=== PATIENT | male | born 1995 | race American Indian/Alaskan Native ===

== ENCOUNTER 2018-02-01 19:59 | Emergency (ER) | payer SELFPAY ==
[2018-02-01] MEDS ORDERED: MOTRIN ONE (20:16)
[2018-02-01] MEDS ORDERED: MOTRIN PO ONE (20:26)
[2018-02-01 21:43] LABS: Bilirubin,Urine NEG (Negative); Blood,Urine MOD (Negative); Color,Urine Yellow (Yellow); Mucus,Urine 2+ /HPF
[2018-02-01 21:44] LABS: WBC,Urine > 182.0 /HPF (0.0-6.0)
--- NOTE | 2018-02-01 22:26 | Ultrasound Report ---
FINAL REPORT PROCEDURE: US TESTICULAR DOPPLER COMP TECHNIQUE: Real-time bryan-scale and color flow Doppler sonography in multiple planes of the scrotum, testicles, and epididymes was performed. Velocity spectral waveform analysis Doppler imaging of the arterial inflow and venous outflow of the testicles was performed with image documentation. CPT 97712 and 16911 HISTORY: testicular swelling and pain COMPARISON: No prior studies are available for comparison. FINDINGS: RIGHT TESTICLE: Size: 4.2 x 2.0 x 2.8 cm . Appearance: Normal size and echotexture . Arterial blood flow: Normal spectral waveforms, flow velocities and color flow images.. Venous blood flow: Normal spectral waveforms and color flow images. Right epididymis: Lateral to the right testis there is a soft tissue attenuation structure with hypervascularity, which may be related to an inflamed epididymis. Hydrocele: None . LEFT TESTICLE Size: 4.0 x 2.1 x 3.1 cm . Appearance: Normal size and echotexture . Arterial blood flow: Normal spectral waveforms, flow velocities and color flow images.. Venous blood flow: Normal spectral waveforms and color flow images. Left epididymis: Normal size and echotexture . Hydrocele: None . IMPRESSION: Findings are likely related to right-sided epididymitis
[2018-02-02] MEDS ORDERED: TYLENOL PO ONE (00:10)
[2018-02-02] MEDS ORDERED: ZOFRAN ODT PO/SL ONE (00:10)
[2018-02-02] MEDS ORDERED: FLAGYL PO ONE (00:10)
[2018-02-02] MEDS ORDERED: ZITHROMAX PO ONE (00:10)
[2018-02-02] MEDS ORDERED: ROCEPHIN IM ONE (00:10)
--- NOTE | 2018-02-02 00:18 | Emergency Department Report ---
ED Male HPI - General Chief complaint: Urogenital-Male Stated complaint: GROIN PAIN Time Seen by Provider: 02/02/18 00:10 Source: patient Mode of arrival: Ambulatory Limitations: No Limitations - History of Present Illness Initial comments: 3 days of green/white penile discharge and right testicular pain. Afebrile. No nausea/vomiting. Lower midline abdominal pain. No history of STDs. - Related Data Allergies Allergy/AdvReac Type Severity Reaction Status Date / Time No Known Allergies Allergy Verified 02/01/18 20:09 ED Review of Systems ROS: Stated complaint: GROIN PAIN Other details as noted in HPI Comment: All other systems reviewed and negative Genitourinary: dysuria, discharge, testicular pain ED Past Medical Hx - Past Medical History Previous Medical History?: No - Surgical History Past Surgical History?: No - Social History Smoking Status: Never Smoker Substance Use Type: None, Marijuana ED Physical Exam - General Limitations: No Limitations General appearance: alert, in no apparent distress - Head Head exam: Present: atraumatic, normocephalic - Eye Eye exam: Present: normal appearance - ENT ENT exam: Present: mucous membranes moist - Neck Neck exam: Present: normal inspection - Respiratory Respiratory exam: Present: normal lung sounds bilaterally. Absent: respiratory distress - Cardiovascular Cardiovascular Exam: Present: regular rate, normal rhythm. Absent: systolic murmur, diastolic murmur, rubs, gallop - GI/Abdominal GI/Abdominal exam: Present: soft, normal bowel sounds. Absent: tenderness - Rectal Rectal exam: Present: deferred - exam: Present: testicular tenderness (right), urethral discharge (green), scrotal swelling (right), circumcision External exam: Present: normal external exam - Extremities Exam Extremities exam: Present: normal inspection - Back Exam Back exam: Present: normal inspection - Neurological Exam Neurological exam: Present: alert, oriented X3 - Psychiatric Psychiatric exam: Present: normal affect, normal mood - Skin Skin exam: Present: warm, dry, intact, normal color. Absent: rash ED Course Vital Signs 02/01/18 02/01/18 20:09 20:29 Temperature 99.8 F H Pulse Rate 87 Respiratory 18 16 Rate Blood Pressure 135/90 O2 Sat by Pulse 100 Oximetry ED Medical Decision Making - Medical Decision Making 22-year-old male with no significant past medical history that presents to the ER with 3 days of penile discharge. Center stable. Patient is well-appearing. Physical exam appears consistent with epididymoorchitis. Patient has green discharge on exam. Testicular ultrasound shows evidence of epididymitis without evidence of torsion. Patient will be treated for gonorrhea/chlamydia/ trichomonas in the ER. I informed him to follow up with the [facility] for syphilis and HIV testing. I told him to abstain from sexual contact for the next week in the form of sexual partners to be tested/treated. - Differential Diagnosis gonorrhea, chlamydia, Trichomonas, torsion, hernia, hydrocele Critical care attestation.: If time is entered above; I have spent that time in minutes in the direct care of this critically ill patient, excluding procedure time. ED Disposition Clinical Impression: Epididymitis with no abscess Disposition: [id number] TO HOME OR SELFCARE Is pt being admited?: No Does the pt Need Aspirin: No Condition: Stable Instructions: Epididymitis (ED) Additional Instructions: Please follow up with the local [facility] for syphilis and HIV testing. No sexual contact for the next week while the antibiotics work. Informed her sexual partners to be tested/treated. You can take 800 mg Motrin and/or 975 mg Tylenol every 6 hours as needed for pain relief. Referrals: PRIMARY CARE, [Primary Care Provider] - 3-5 Days
[2018-02-02] MEDS ORDERED: XYLOCAINE 1% 20 mL ONE (00:21)
[2018-02-02 00:47] VITALS: BP 122/64
== END 2018-02-02 00:47 | disposition home or self-care (01) ==
LOC: ED 19:59
DX: N45.1 Epididymitis (principal); F12.10 Cannabis abuse, uncomplicated
CPT/HCPCS: 81001; 87591; 93975; 96372; 99284; J0696; Q0162